=== PATIENT | female | born 1950 | race Caucasian/White ===

== ENCOUNTER → 2017-07-03 | Outpatient (CLI) | payer MEDICARE | END | disposition home or self-care (01) | LOC: CFH 11:01 | PROVIDERS: ATTEND Nurse Practitioner | DX: Z12.31 Encounter for screening mammogram for malignant neoplasm of breast (principal); M81.0 Age-related osteoporosis without current pathological fracture; N95.1 Menopausal and female climacteric states | CPT/HCPCS: 77080; G0202 ==

== ENCOUNTER 2018-07-02 08:46 | Day surgery (SDC) | payer MEDICARE ==
[~2018-07-02] VITALS: Ht 147.3 cm; Wt 65.9 kg
[~2018-07-02 08:46] MED LIST: ATOR10TA PO; CARV6.252 PO; HYDR25TA11 PO; LISI40TA PO; METF500T17 PO
[2018-07-02] MEDS ORDERED: SODIUM CHLORIDE 0.9% 1,000 ML IV ONE (09:43)
[2018-07-02 09:55] VITALS: BP 185/85
[2018-07-02] MEDS ORDERED: ERGO500017 PO (10:04)
[2018-07-02] MEDS ORDERED: ASPI-496 PO (10:04)
[2018-07-02 10:31] LABS: ALANINE AMINOTRANSFERASE 31 U/L (12-78); ALBUMIN 3.7 g/dL (3.4-5.0); ANION GAP 9 mmol/L (5-15); CALCIUM 8.8 mg/dL (8.5-10.1); CHLORIDE 109 mmol/L (98-107); CREATININE 0.76 mg/dL (0.55-1.02)
[2018-07-02 10:33] LABS: ALKALINE PHOSPHATASE 90 U/L (45-117); BILIRUBIN,TOTAL 1.1 mg/dL (0.2-1.0); TOTAL PROTEIN 8.1 g/dL (6.4-8.2)
[2018-07-02 11:16] LABS: BASOPHILS # (AUTO) 0.02 x10^3/uL (0-0.1); BASOPHILS % (AUTO) 0 % (0-1); EOSINOPHILS # (AUTO) 0.09 x10^3/uL (0-0.4); EOSINOPHILS % (AUTO) 2 % (1-7); LYMPHOCYTES # (AUTO) 1.46 x10^3/uL (1-3.4); LYMPHOCYTES % (AUTO) 25 % (22-44); MD NO; MEAN CORPUSCULAR HEMOGLOBIN 30.2 pg (27.0-34.8); MEAN CORPUSCULAR HGB CONC 34.4 g/dL (32.4-35.8); MEAN CORPUSCULAR VOLUME 87.8 fL (80-100); MEAN PLATELET VOLUME 9.3 fL (7.4-10.4); MONOCYTES # (AUTO) 0.29 x10^3/uL (0.2-0.8); MONOCYTES % (AUTO) 5 % (2-9); NEUTROPHILS # (AUTO) 3.94 x10^3/uL (1.8-6.8); NEUTROPHILS % (AUTO) 68 % (42-75); PLATELET COUNT 213 x10^3/uL (130-400)
[2018-07-02] MEDS ORDERED: MIDAZOLAM 1 MG/ML, 2ML ONE (11:32)
[2018-07-02] MEDS ORDERED: FENTANYL PF 100 MCG/2ML ONE (11:32)
[2018-07-02] MEDS ORDERED: LIDOCAINE-MPF 2%, 2ML ONE (11:32)
[2018-07-02] MEDS ORDERED: LIDOCAINE/PF 1%, 30ML ONE (11:43)
== END 2018-07-02 16:24 | disposition home or self-care (01) ==
LOC: CACL 08:46
PROVIDERS: ATTEND Internal Medicine Cardiovascular Disease
DX: R07.9 Chest pain, unspecified (principal); R01.1 Cardiac murmur, unspecified; I10 Essential (primary) hypertension; E78.5 Hyperlipidemia, unspecified; E11.40 Type 2 diabetes mellitus with diabetic neuropathy, unspecified; Z79.82 Long term (current) use of aspirin; Z79.899 Other long term (current) drug therapy
CPT/HCPCS: 36415; 80053; 85025; 93458; 99156; 99157; C1769; C1894; J2250; J3010; J3490; Q9967

== ENCOUNTER → 2018-08-20 | Outpatient (CLI) | payer MEDICARE ==
[~2018-08-20] MED LIST changes: +ASPI-496 PO; +ERGO500017 PO
== END | disposition home or self-care (01) ==
LOC: CFH 15:50
PROVIDERS: ATTEND Physician Assistant
DX: I34.0 Nonrheumatic mitral (valve) insufficiency (principal); I35.8 Other nonrheumatic aortic valve disorders; I10 Essential (primary) hypertension; E78.5 Hyperlipidemia, unspecified
CPT/HCPCS: 93306

== ENCOUNTER → 2019-12-28 | Outpatient (CLI) | payer MEDICARE ==
[~2019-12-28] MED LIST changes: +HYDR-826 PO; -HYDR25TA11 PO
== END | disposition home or self-care (01) ==
LOC: CFH 09:51
PROVIDERS: ATTEND Internal Medicine Cardiovascular Disease
DX: I08.8 Other rheumatic multiple valve diseases (principal); E11.9 Type 2 diabetes mellitus without complications; I10 Essential (primary) hypertension; E78.5 Hyperlipidemia, unspecified
CPT/HCPCS: 93306

== ENCOUNTER 2021-08-22 21:15 | Emergency (ER) | payer MEDICARE ==
[~2021-08-22] VITALS: Ht 149.9 cm; Wt 68.7 kg
[~2021-08-22 21:15] MED LIST changes: -LISI40TA PO; +LISI40TA9 PO
[2021-08-22 21:57] LABS: BASOPHILS % (AUTO) 1 % (0-1); EOSINOPHILS % (AUTO) 2 % (1-7); LYMPHOCYTES % (AUTO) 19 % (22-44); MEAN CORPUSCULAR HEMOGLOBIN 31.1 pg (27.0-34.8); MEAN PLATELET VOLUME 8.5 fL (7.4-10.4); MONOCYTES % (AUTO) 6 % (2-9); NEUTROPHILS % (AUTO) 73 % (42-75); PLATELET COUNT 230 x10^3/uL (130-400); RED BLOOD COUNT 4.29 x10^6/uL (3.82-5.3); RED CELL DISTRIBUTION WIDTH 13.4 % (9.6-15.2)
--- NOTE | 2021-08-22 22:05 | NUR ---
BP HIGH TODAY, NECK PAIN, WITH FEET TINGLING, HX OF HTN, DM, FSBS 204 ALL PAIN RESOLVED VSS ON NEUROLOGY TECHNICIAN UPDATED ON ESTIMATED POC
[2021-08-22 22:08] LABS: ALANINE AMINOTRANSFERASE 26 U/L (12-78); ALBUMIN 3.7 g/dL (3.4-5.0); ANION GAP 8 mmol/L (5-15); CALCIUM 8.5 mg/dL (8.5-10.1); CHLORIDE 97 mmol/L (98-107); CREATININE 0.84 mg/dL (0.55-1.02)
[2021-08-22 22:11] LABS: ALKALINE PHOSPHATASE 73 U/L (45-117); BILIRUBIN,TOTAL 0.6 mg/dL (0.2-1.0)
--- NOTE | 2021-08-22 23:00 | NUR ---
RECEIVED BS REPORT FROM LINDA DEMARCO TO ASSUME CARE OF PT. AT THIS TIME. CHART UP FOR RECHECK BY ERP.
--- NOTE | 2021-08-22 23:01 | NUR ---
REPORT TO ORALIA MCKEON
[2021-08-22 23:34] VITALS: BP 145/57
== END 2021-08-22 23:43 | disposition home or self-care (01) ==
LOC: ED 23:41
DX: S16.1XXA Strain of muscle, fascia and tendon at neck level, initial encounter (principal); I10 Essential (primary) hypertension; R42 Dizziness and giddiness; E11.9 Type 2 diabetes mellitus without complications; R94.31 Abnormal electrocardiogram [ECG] [EKG]; X58.XXXA Exposure to other specified factors, initial encounter; Y93.89 Activity, other specified; Y92.89 Other specified places as the place of occurrence of the external cause; Y99.8 Other external cause status
CPT/HCPCS: 36415; 80053; 85025; 93005; 99284